=== PATIENT | male | born 1945 | race Caucasian/White ===

== ENCOUNTER 2018-04-07 22:21 | Observation (INO) | payer MEDICARE, BC ==
[2018-04-07] MEDS ORDERED: ASPIRIN 81 MG PO STA (22:41)
--- NOTE | 2018-04-07 22:45 | ED ---
Chest Pain HPI - General Chief Complaint: Chest Pain Stated Complaint: Chest Pain Time Seen by Provider: 04/07/18 22:29 Source: patient, family Mode of arrival: ambulatory Limitations: no limitations - History of Present Illness Initial Comments: Patient is a 72-year-old male presenting for chest pain. Patient states that around 6 PM, he started having a constant dull sensation on the left side of his chest. The discomfort does not radiate and he states that multiple different things made the pain worse such as eating and drinking as well as moving. He denies any nausea/vomiting/diarrhea and decided to come in after he was having persistent symptoms and he checked his blood pressure and it was 200/ 125. He also admits to past medical history hypertension and hyperlipidemia but does not smoke. He also denies any fevers or chills as well as coughing. - Related Data Home Medications Medication Instructions Recorded Confirmed Multivit-Mins/Iron/Folic/Lycop 1 tab PO DAILY 12/08/15 12/08/15 [Centrum Men's Tablet] Quinapril HCl 10 mg PO DAILY 12/08/15 12/08/15 Simvastatin [Zocor] 20 mg PO HS 12/08/15 12/08/15 Allergies Allergy/AdvReac Type Severity Reaction Status Date / Time No Known Allergies Allergy Verified 04/07/18 22:26 Review of Systems ROS Statement: Those systems with pertinent positive or pertinent negative responses have been documented in the HPI. Constitutional: Negative for chills, fatigue and fever. HENT: Negative for congestion. Respiratory: Negative for chest tightness, shortness of breath and wheezing. Negative for cough Cardiovascular: Positive for chest pain and negative for palpitations. Gastrointestinal: Negative for abdominal pain. Negative for abdominal distention , diarrhea, nausea and vomiting. Genitourinary: Negative for dysuria. Musculoskeletal: Negative for back pain, neck pain and neck stiffness. Skin: Negative for color change. Neurological: Negative for dizziness, speech difficulty, weakness and light- headedness. Psychiatric/Behavioral: Negative for agitation and confusion. Negative for anxiety ROS Other: All systems not noted in ROS Statement are negative. EKG Findings - EKG Comments: EKG Findings:: EKG shows normal sinus rhythm with a rate of 64 bpm, UT interval 186, QRS 92, QTC 431. There is no significant ST depressions or elevations. Past Medical History Past Medical History: Hypertension History of Any Multi-Drug Resistant Organisms: None Reported Past Surgical History: Orthopedic Surgery Past Psychological History: No Psychological Hx Reported Smoking Status: Never smoker Past Alcohol Use History: Occasional Past Drug Use History: None Reported General Exam - General Exam Comments Initial Comments: Constitutional: Pt is oriented to person, place, and time. Pt appears well- developed and well-nourished. No distress. HENT: Head: Normocephalic and atraumatic. Eyes: EOM are normal. Neck: Normal range of motion. Neck supple. Cardiovascular: Normal rate, regular rhythm, S1 normal, S2 normal and normal heart sounds. Exam reveals no gallop and no friction rub. No murmur heard. Pulmonary/Chest: Effort normal and breath sounds normal. No tachypnea and no bradypnea. No respiratory distress. No wheezes or rales noted. Abdominal: Soft. Bowel sounds are normal. Pt exhibits no shifting dullness, no distension, no pulsatile liver, no fluid wave, no abdominal bruit and no ascites. There is no tenderness. There is no rigidity, no rebound, no guarding, no tenderness at McBurney's point and negative Glover's sign. Musculoskeletal: Normal range of motion. Neurological: Pt is alert and oriented to person, place, and time. No cranial nerve deficit. Skin: Skin is warm and dry. No rash noted. Pt is not diaphoretic. No erythema. No pallor. Psychiatric: Pt has a normal mood and affect. Pt behavior is normal. Thought content normal. Limitations: no limitations Course Vital Signs 04/07/18 04/07/18 04/07/18 22:24 22:55 23:05 Temperature 98.5 F Pulse Rate 66 68 62 Respiratory 20 16 16 Rate Blood Pressure 221/116 177/102 170/96 O2 Sat by Pulse 99 98 Oximetry 04/07/18 23:50 Temperature Pulse Rate 64 Respiratory 16 Rate Blood Pressure 160/99 O2 Sat by Pulse 98 Oximetry Chest Pain MDM - MDM EKG had no significant ST depressions or elevations and troponin was negative. However, the patient has significant heart risk including hypertension and hyperlipidemia with a heart score 4and because of this, is that the patient should be admitted to hospital for further evaluation. At the time of disposition, the patient stated that the chest discomfort had improved. Explained all labs and diagnostic test results and that we will admit patient to hospital. Pt is agreeable to plan and case has been discussed with Dr. Beckford and they agree to accept the pt. Disposition Clinical Impression: Chest pain Disposition: ADMITTED IP TO THIS HOSP Condition: Good Referrals: Winston Martinez MD [Primary Care Provider] - 1-2 days Decision to Admit Reason: Admit from EC Decision Date: 04/08/18 Decision Time: 00:33
[2018-04-07 23:24] LABS: Basophils # (A) 0.1 k/uL (0-0.2); Basophils % (A) 1 %; Eosinophils # (A) 0.3 k/uL (0-0.7); Eosinophils % (A) 4 %; HCT 40.5 % (39.0-53.0); HGB 13.5 gm/dL (13.0-17.5); Lymphocytes # (A) 2.4 k/uL (1.0-4.8); Lymphocytes % (A) 29 %; MCHC 33.2 g/dL (31.0-37.0); MCV 93.5 fL (80.0-100.0); Mean Platelet Volume 7.2; Monocytes # (A) 0.6 k/uL (0-1.0); Monocytes % (A) 7 %; Neutrophils # (A) 4.7 k/uL (1.3-7.7); Neutrophils % (A) 58 %; Platelet Count 281 k/uL (150-450); RBC 4.34 m/uL (4.30-5.90); RDW 12.4 % (11.5-15.5); WBC 8.2 k/uL (3.8-10.6)
[2018-04-07 23:32] LABS: INR 1.1 (<1.2); Prothrombin Time 10.6 sec (9.0-12.0)
[2018-04-07 23:34] LABS: ALT 30 U/L (21-72); AST 23 U/L (17-59); Alkaline Phosphatase 46 U/L (38-126); Anion Gap 8 mmol/L; Blood Urea Nitrogen 16 mg/dL (9-20); Calcium 9.7 mg/dL (8.4-10.2); Carbon Dioxide 26 mmol/L (22-30); Chloride 106 mmol/L (98-107); Glucose 105 mg/dL (74-99); Magnesium 2.1 mg/dL (1.6-2.3); Potassium 4.1 mmol/L (3.5-5.1); Sodium 140 mmol/L (137-145); Total Bilirubin 0.4 mg/dL (0.2-1.3)
[2018-04-07 23:44] LABS: Creatine Kinase 75 U/L (55-170)
[2018-04-07 23:57] LABS: Troponin I <0.012 ng/mL (0.000-0.034)
--- NOTE | 2018-04-08 00:17 | XR ---
EXAMINATION TYPE: XR chest 2V DATE OF EXAM: 04/07/2018 COMPARISON: 12/22/2007 HISTORY: Chest pain TECHNIQUE: Frontal and lateral views of the chest are obtained. FINDINGS: There is no heart failure nor confluent pneumonic infiltrate. Costophrenic angles are rubi r. There are chest leads. Bony thorax is intact. IMPRESSION: No active cardiopulmonary disease. Normal heart. No change.
[2018-04-08] MEDS ORDERED: NITROGLYCERIN SL TABS 0.4 MG TAB SUBLINGUAL PRN (00:34)
[2018-04-08] MEDS ORDERED: hydrALAZINE HCL 10 MG TAB PO PRN (01:05)
[2018-04-08 01:27] VITALS: BMI 27.1
[2018-04-08] MEDS ORDERED: amLODIPine 5 MG TAB PO STA ×2 (06:27→07:51)
[2018-04-08 06:33] LABS: Creatine Kinase 68 U/L (55-170)
[2018-04-08 06:46] LABS: Creatine Kinase MB 0.9 ng/mL (0.0-2.4); Troponin I <0.012 ng/mL (0.000-0.034)
[2018-04-08] MEDS ORDERED: CAFFEINE CITRATE 60 MG/3 ML VIAL IV PRN (07:52)
[2018-04-08] MEDS ORDERED: REGADENOSON 0.4 MG/5 ML SYRINGE IV ONE (07:52)
[2018-04-08 08:03] VITALS: TEMP 98.2
[2018-04-08] MEDS ORDERED: LISINOPRIL 20 MG TAB PO SCH (09:00)
[2018-04-08] MEDS ORDERED: LISINOPRIL 10 MG TAB PO SCH (09:00)
[2018-04-08] MEDS ORDERED: HYDROCHLOROTHIAZIDE 25 MG TAB PO SCH (09:00)
--- NOTE | 2018-04-08 11:01 | P.CRDCN ---
History of Present Illness History of present illness: This is a pleasant 72-year-old male past medical history significant for hypertension and dyslipidemia. He denies history of coronary artery disease or diabetes mellitus. He does not follow with a frame nailer for any reason. We have been asked to see him in consultation for chest pain. He states last evening after a long day of running around and activities with his they came home and he was sitting down. He started feeling a non-specific discomfort in the mid-sternal region with radiation to the left precordial region. The pain is described as a tight dull sensation. He denies radiation to the arm, back, neck or jaw. He denies associated shortness of breath, dizziness, palpitations, nausea, vomiting or diaphoresis. He checked his blood pressure at home and it was 230/120. For this reason he came to the hospital for evaluation. He has been feeling this discomfort in his chest intermittently over the last few months. The pain typically comes at rest and is not exacerbated by exertion. He doesn't regularly check his blood pressure at home. He is currently chest pain free. His at the bedside states she has noticed he has been increasingly fatigued recently as well. EKG reveals sinus mechanism with no acute ST or T-wave changes. Chest xray negative for an acute cardiopulmonary process. Laboratory data reviewed, WBC 8.2, hgb 13.5, plt 281, sodium 140, potassium 4.1 , creatinine 0.89, magnesium 2.1, cardiac enzymes negative x2, NT proBNP 170. Current cardiac medications simvastatin 20 mg daily, quilapril 10 mg daily and toprol 25 mg daily. At the time of my exam: CONSTITUTIONAL: Denies fever. Denies chills. EYES: Denies blurred vision. Denies vision changes. Denies eye pain. EARS, NOSE, MOUTH & THROAT: Denies headache. Denies sore throat. Denies ear pain. CARDIOVASCULAR: Denies chest pain. Denies shortness of breath. Denies orthopnea. Denies PND. Denies palpitations. RESPIRATORY: Denies cough. GASTROINTESTINAL: Denies abdominal pain. Denies diarrhea. Denies constipation. Denies nausea. Denies vomiting. MUSCULOSKELETAL: Denies myalgias. INTEGUMENTARY: Denies pruitis. Denies rash. NEUROLOGIC: Denies numbness. Denies tingling. Denies weakness. PSYCHIATRIC: Denies anxiety. Denies depression. ENDOCRINE: Denies fatigue. Denies weight change. Denies polydipsia. Denies polyurina. GENITOURINARY: Denies burning, hematuria or urgency with micturation. HEMATOLOGIC: Denies history of anemia. Denies bleeding. Blood pressure 158/92 heart rate 79 afebrile maintaining oxygen saturation on room air GENERAL: This is a 72-year-old male in no apparent distress at the time of my examination. HEENT: Head is atraumatic, normocephalic. Pupils are equal, round. Sclerae anicteric. Conjunctivae are clear. Mucous membranes of the mouth are moist. Neck is supple. There is no jugular venous distention. No carotid bruit is heard. LUNGS: Clear to auscultation no wheezes, rales or rhonchi. No chest wall tenderness is noted on palpation or with deep breathing. HEART: Regular rate and rhythm without murmurs, rubs or gallops. S1 and S2 heard. ABDOMEN: Soft, nontender. Bowel sounds are heard. No organomegaly noted. EXTREMITIES: No evidence of peripheral edema and no calf tenderness noted. VASCULAR: Radial and dorsalis pedis pulses palpated, no evidence of clubbing. NEUROLOGIC: Patient is awake, alert and oriented x3. ASSESSMENT Chest pain, atypical. An acute coronary event has been ruled out with no EKG evidence of ischemia and negative cardiac enzymes. Hypertension, uncontrolled. Dyslipidemia PLAN An acute coronary event has been ruled out with no EKG evidence of ischemia and negative cardiac enzymes. Lisinopril has been increased to 20 mg daily per primary care team as well as added on norvasc 5 mg. We will also add hydrochlorothiazide 25 mg daily. If blood pressure is reasonable after giving these medications we will proceed with Lexiscan stress test. Check lipid profile. Thank you kindly for this consultation. Nurse Practitioner note has been reviewed, I agree with a documented findings and plan of care. Patient was seen and examined. Past Medical History Past Medical History: Hyperlipidemia, Hypertension History of Any Multi-Drug Resistant Organisms: None Reported Past Surgical History: Orthopedic Surgery Additional Past Surgical History / Comment(s): left wrist ORIF Past Anesthesia/Blood Transfusion Reactions: No Reported Reaction Past Psychological History: No Psychological Hx Reported Smoking Status: Never smoker Past Alcohol Use History: Occasional Past Drug Use History: None Reported - Past Family History Brother(s) Additional Family Medical History / Comment(s): aortic dissection Medications and Allergies Home Medications Medication Instructions Recorded Confirmed Type Multivit-Mins/Iron/Folic/Lycop 1 tab PO DAILY 12/08/15 04/08/18 History [Centrum Men's Tablet] Quinapril HCl 10 mg PO DAILY 12/08/15 04/08/18 History Simvastatin [Zocor] 20 mg PO HS 12/08/15 04/08/18 History Finasteride [Proscar] 5 mg PO DAILY 04/08/18 04/08/18 History Metoprolol Succinate [Toprol XL] 25 mg PO DAILY 04/08/18 04/08/18 History Allergies Allergy/AdvReac Type Severity Reaction Status Date / Time No Known Allergies Allergy Verified 04/08/18 08:42 Physical Exam Vitals: Vital Signs Temp Pulse Pulse Resp BP BP Pulse Ox 04/08/18 09:14 158/92 04/08/18 08:00 79 16 04/08/18 07:27 98.2 F 79 16 194/105 98 04/08/18 06:37 64 16 181/107 96 04/08/18 03:25 16 04/08/18 03:24 98.4 F 65 16 156/95 98 04/08/18 01:46 51 L 16 04/08/18 01:10 98.7 F 51 L 16 174/98 96 04/08/18 01:00 97.8 F 56 L 16 175/98 98 04/07/18 23:50 64 16 160/99 98 04/07/18 23:05 62 16 170/96 04/07/18 22:55 68 16 177/102 98 04/07/18 22:24 98.5 F 66 20 221/116 99 Intake and Output 04/07/18 04/08/18 04/08/18 22:59 06:59 14:59 Other: Voiding Method Toilet Toilet # Voids 2 Weight 90.718 kg 90.7 kg Results 04/07/18 23:02 04/07/18 23:02 Cardiac Enzymes 04/07/18 04/07/18 04/08/18 Range/Units 23:02 23:02 05:28 AST 23 (17-59) U/L CK-MB (CK-2) 1.0 0.9 (0.0-2.4) ng/mL Troponin I <0.012 <0.012 (0.000-0.034) ng/mL Coagulation 04/07/18 Range/Units 23:02 PT 10.6 (9.0-12.0) sec APTT 25.0 (22.0-30.0) sec CBC 04/07/18 Range/Units 23:02 WBC 8.2 (3.8-10.6) k/uL RBC 4.34 (4.30-5.90) m/uL Hgb 13.5 (13.0-17.5) gm/dL Hct 40.5 (39.0-53.0) % Plt Count 281 (150-450) k/uL Comprehensive Metabolic Panel 04/07/18 Range/Units 23:02 Sodium 140 (137-145) mmol/L Potassium 4.1 (3.5-5.1) mmol/L Chloride 106 (98-107) mmol/L Carbon Dioxide 26 (22-30) mmol/L BUN 16 (9-20) mg/dL Creatinine 0.89 (0.66-1.25) mg/dL Glucose 105 H (74-99) mg/dL Calcium 9.7 (8.4-10.2) mg/dL AST 23 (17-59) U/L ALT 30 (21-72) U/L Alkaline Phosphatase 46 (38-126) U/L Total Protein 7.0 (6.3-8.2) g/dL Albumin 4.0 (3.5-5.0) g/dL Current Medications Generic Name Dose Route Start Last Admin Trade Name Freq PRN Reason Stop Dose Admin Aspirin 325 mg 04/09/18 09:00 Aspirin PO DAILY [facility] Atorvastatin Calcium 10 mg 04/08/18 21:00 Lipitor PO HS ROSARIO Caffeine Citrate 60 mg 04/08/18 07:52 Cafcit Inj IV ONCE PRN Patient Response Hydrochlorothiazide 25 mg 04/08/18 09:00 04/08/18 09:13 Hydrodiuril PO 25 mg DAILY ROSARIO Administration Lisinopril 20 mg 04/08/18 09:00 04/08/18 08:13 Zestril PO 20 mg DAILY ROSARIO Administration Nitroglycerin 0.4 mg 04/08/18 00:34 Nitrostat SUBLINGUAL Q5M PRN Chest Pain Intake and Output 04/07/18 04/08/18 04/08/18 22:59 06:59 14:59 Other: Voiding Method Toilet Toilet # Voids 2 Weight 90.718 kg 90.7 kg 04/07/18 23:02 04/07/18 23:02
[2018-04-08 11:52] LABS: Cholesterol 147 mg/dL (<200); HDL Cholesterol 49 mg/dL (40-60); LDL Cholesterol,Calculated 86 mg/dL (0-99); Triglycerides 62 mg/dL (<150)
--- NOTE | 2018-04-08 13:04 | ECHOF ---
Referral Reason:chest pain MEASUREMENTS -------- HEIGHT: 182.9 cm WEIGHT: 90.3 kg BP: RVIDd: 2.5 cm (< 3.3) IVSd: 1.2 cm (0.6 - 1.1) LVIDd: 3.9 cm (3.9 - 5.3) LVPWd: 1.2 cm (0.6 - 1.1) IVSs: 1.5 cm LVIDs: 3.0 cm LVPWs: 1.4 cm LAESV Index (A-L): 27.38 ml/m Ao Diam: 3.7 cm (2.0 - 3.7) AV Cusp: 2.0 cm (1.5 - 2.6) LA Diam: 3.2 cm (2.7 - 3.8) MV EXCURSION: 13.189 mm (> 18.000) MV EF SLOPE: 29 mm/s (70 - 150) EPSS: 0.8 cm MV E Ney: 0.33 m/s MV DecT: 218 ms MV A Ney: 0.61 m/s MV E/A Ratio: 0.55 RAP: 5.00 mmHg RVSP: 20.32 mmHg FINDINGS -------- Sinus rhythm. This was a technically adequate study. The left ventricular size is normal. There is mild concentric left ventricular hypertrophy. Overa ll left ventricular systolic function is normal with, an EF between 55 - 60 %. The right ventricle is normal in size. The left atrial size is normal. The right atrial size is normal. The aortic valve is trileaflet, and appears structurally normal. No aortic stenosis or regurgitation. Mild mitral annular calcification present. Mild mitral regurgitation is present. Mild tricuspid regurgitation present. There is no evidence of pulmonary hypertension. The right v entricular systolic pressure, as measured by Doppler, is 20.32mmHg. There is no pulmonic regurgitation present. The aortic root size is normal. There is no pericardial effusion. CONCLUSIONS -------- 1. Sinus rhythm. 2. The left ventricular size is normal. 3. There is mild concentric left ventricular hypertrophy. 4. Overall left ventricular systolic function is normal with, an EF between 55 - 60 %. 5. The left atrial size is normal. 6. The right atrial size is normal. 7. The aortic valve is trileaflet, and appears structurally normal. No aortic stenosis or regurgitati on. 8. Mild mitral annular calcification present. 9. Mild mitral regurgitation is present. 10. Mild tricuspid regurgitation present. 11. There is no evidence of pulmonary hypertension. 12. There is no pulmonic regurgitation present. 13. The aortic root size is normal. 14. There is no pericardial effusion. RN CLINICAL DOCUMENTATION: Becki Starks RDCS
--- NOTE | 2018-04-08 13:19 | NM ---
EXAMINATION TYPE: NM stress lexiscan cardiolite DATE OF EXAM: 04/08/2018 COMPARISON: NONE HISTORY: Chest pain TECHNIQUE: After the intravenous administration of 10.3 mCi Tc 99m Sestamibi - Cardiolite resting SP ECT images acquired 45 minutes post injection. The patient received 0.4mg Lexiscan, 25.1 mCi Tc 99m Sestamibi - Stress images obtained [address] injection FINDINGS: Review of stress and rest SPECT images demonstrates no reversible perfusion abnormality. Single segme nt rest only perfusion defect is artifactual. Gated analysis shows normal wall motion with an estima chanel left ventricular ejection fraction of 60 %. Transient ischemic dilatation coefficient measures 1. 02, within normal limits. IMPRESSION: No scintigraphic evidence for reversible ischemia.
[2018-04-08 13:31] VITALS: BP 169/105; PULSE 74; RESP 18
--- NOTE | 2018-04-08 14:13 | EST ---
EXERCISE STRESS AGE: 72 SEX: M HT: 6'0" WT: 199 PROTOCOL: Lexiscan Cardiolite Stress Test HEART RATE REST: 64 BLOOD PRESSURE REST: 138/90 MAXIMUM HEART RATE ACHIEVED: 92 MAXIMUM BLOOD PRESSURE: 159/90 85% MPHR: 125 100% MPHR: 147 INDICATIONS: Chest pain. CLINICAL INFORMATION: Baseline rhythm is sinus mechanism. rate is 64, normal axis, intervals. Normal echocardiogram. Baseline blood pressure 138/90 mmHg. Patient received injection of Lexiscan. Electrocardiographic monitoring revealed rare PVCs. There was no evidence of diagnostic ischemic ST-T deviation. Cardiolite was injected per protocol. CONCLUSION: 1. Nondiagnostic electrocardiograph stress testing with occasional premature ventricular contractions. 2. Nuclear images will be reported separately. MMODL / IJN: [id number] /
[2018-04-08] MEDS ORDERED: ATORVASTATIN 10 MG TAB PO SCH (21:00)
--- NOTE | 2018-04-09 00:17 | HP ---
HISTORY AND PHYSICAL ATTENDING PHYSICIAN: Dr. Roshan Martinez. CHIEF COMPLAINT: Chest pain. HISTORY OF PRESENT ILLNESS: This 72-year-old gentleman presents to the emergency room with having a chest pain across the left precordium for a few hours. The patient said he has had this type of pain off and on for the past couple months. Today at the time before presenting to the emergency room, he was having some discomfort. The discomfort seemed to be more when he was seated down or lying down. He felt better if he got up and walked around. There was no other associated symptoms of nausea, vomiting, heartburn. No abdominal pain. He had no symptoms of shortness of breath, diaphoresis. This pain, discomfort is only in the left precordial area, not radiating. Has no other associated symptoms of fevers or chills. The patient in view of this took his blood pressure and noted that it was extremely high in the 200s. In view of this, he presents to the emergency room. He was told blood pressure was 221/116 in the ER. No acute EKG changes. Negative cardiac enzymes. In view of above findings, the patient is admitted to the hospital for observation. PAST MEDICAL HISTORY: Primarily significant for hypertension. Past medical history of hypertension, osteoarthritis, hyperlipidemia, BPH. PAST SURGICAL HISTORY: Significant for a TURP. PERSONAL HISTORY: Nonsmoker. Alcohol. A glass of wine per day about once a week. FAMILY MEDICAL HISTORY: Father at the age of 80, hypertensive heart disease. Mother at the age of 81, primary pulmonary fibrosis as a brother 68 years of age who has a history of thoracoabdominal dissection and recent aneurysmal dilatation correction. He has a son, 39 in good health, a daughter 43 in good health. MEDICATIONS: At home have included quinapril 10 mg daily, metoprolol succinate 25 mg daily, simvastatin 20 mg daily, finasteride 5 mg daily. REVIEW OF SYSTEMS: NEURO: Denies any headaches, dizziness. No double vision or blurred vision. No symptoms of TIA, syncope, seizures. PSYCH: No anxiety/depression. CARDIAC: Present atypical chest pain. No associated shortness of breath. No palpitations. GI no nausea, vomiting, abdominal pain, diarrhea. no symptoms of dysuria, hematuria, urgency. Does have some frequency and nocturia x1. Extremities: Denies pain/edema. CONSTITUTIONAL: No fever, chills. HEMATOLOGICAL: No anemia or bleeding disorder. ENDOCRINE: No history of diabetes mellitus or hypothyroidism. SKIN: No rashes. ENT adequate hearing, smell test. Eyes adequate vision. PHYSICAL EXAMINATION: Pleasant gentleman at present in no distress. Vital signs reveals temperature 98.2, pulse 79, respirations 16, blood pressure 194/105, pulse ox 98 percent. HEENT: Normocephalic. NECK: Supple. No JVD. No carotid bruits. CHEST: Clear to auscultation and percussion. CARDIAC: Normal S1, S2 with no gallops, murmurs, rubs. ABDOMEN: Soft. No palpable masses. Bowel sounds normal. No organomegaly. No abdominal bruits. EXTREMITIES: Reveal no edema. Good pulses both upper lower extremities and symmetrical pulses both radial, femoral, and pedal. Neurologically awake, alert, oriented x3 with intact cranial nerves, symmetrical both upper and lower extremities many movements. LAB ASSESSMENT: Normal CBC, PT, PTT, INR, electrolytes, BUN, creatinine, and blood sugar was 105. Normal hepatic function. Normal BMP. Albumin normal. Troponins negative. Repeat troponin negative as well. Cholesterol 147, LDL 86. EKG no acute changes. Normal sinus rhythm, rate 64, and normal EKG. ASSESSMENT: 1. Atypical chest pain. 2. Accelerated hypertension. 3. History of benign prostatic hypertrophy. 4. Hyperlipidemia on medical therapy. PLAN: The patient is admitted to the hospital, will be given extra doses of his quinapril does will be doubled. The patient placed on Norvasc 10 mg daily. Continue with metoprolol. The patient will undergo stress test and echocardiogram. The patient also needs to be seen by Cardiology. If the cardiac stress test comes back negative, the patient will be placed on Prilosec. We will subsequently as an outpatient, re-evaluate further. MMODL / IJN: [id number] /
[2018-04-09] MEDS ORDERED: ASPIRIN 325 MG TAB PO SCH (09:00)
[2018-04-09] MEDS ORDERED: ASPIRIN 81 MG PO SCH (09:00)
== END 2018-04-08 16:09 | disposition home or self-care (01) ==
LOC: EC 22:21 → 1SOBS 04-08 00:34
PROVIDERS: ADMIT Internal Medicine; ATTEND Internal Medicine
DX: R07.89 Other chest pain (principal); I10 Essential (primary) hypertension; E78.5 Hyperlipidemia, unspecified; R53.83 Other fatigue; N40.0 Benign prostatic hyperplasia without lower urinary tract symptoms; M19.90 Unspecified osteoarthritis, unspecified site; Z79.899 Other long term (current) drug therapy; Z98.890 Other specified postprocedural states; Z82.49 Family history of ischemic heart disease and other diseases of the circulatory system
CPT/HCPCS: 99285; 36415; 93005; 93017; 93306; 83880; 80061; 80053; 82550 ×2; 82553 ×2; 83735; 84484 ×2; 85025; 85610; 85730; 71046; 78452; G0378; A9500; J2785

== ENCOUNTER → 2018-10-07 | Outpatient (CLI) | payer MEDICARE, BC ==
--- NOTE | 2018-10-07 16:04 | US ---
EXAMINATION TYPE: US carotid duplex BILAT DATE OF EXAM: 10/07/2018 COMPARISON: NONE CLINICAL HISTORY: I10 HTN, G45.1 Carotid artery syndrome.... EXAM MEASUREMENTS: RIGHT: Peak Systolic Velocity (PSV) cm/sec ----- Right CCA: 62.2 ----- Right ICA: 108. ----- Right ECA: 59.1 ICA/CCA ratio: 1.74 RIGHT: End Diastole cm/sec ----- Right CCA: 22.2 ----- Right ICA: 35.5 ----- Right ECA: 12.1 LEFT: Peak Systolic Velocity (PSV) cm/sec ----- Left CCA: 71.0 ----- Left ICA: 65.9 ----- Left ECA: 71.3 ICA/CCA ratio: 0.91 LEFT: End Diastole cm/sec ----- Left CCA: 25.3 ----- Left ICA: 41.2 ----- Left ECA: 14.1 VERTEBRALS (direction of flow): Right Vertebral: Antegrade Left Vertebral: Antegrade Rhythm: Normal Mild atherosclerotic changes with no significant increases in velocity. IMPRESSION: Mild degree of grayscale atheromatous plaquing with no sonographically evident hemodynam ically significant stenosis within either visualized carotid arterial system. Criteria for Assigning % of Stenosis / Diameter reduction (Estimation based on the indirect measurements of the internal carotid artery velocities (ICA PSV). 1. Normal (no stenosis)=ICA PSV < 125 cm/s: ratio < 2.0: ICA EDV<40 cm/s. 2. Less than 50% stenosis=ICA PSV < 125 cm/s: ratio < 2.0: ICA EDV<40 cm/s. 3. 50 to 69% stenosis=ICA PSV of 125 to 230 cm/s: ration 2.0 ? 4.0: ICA EDV 40-100 cm/s. 4. Greater than 70% stenosis to near occlusion= ICA PSV > 230 cm/s: ratio > 4.0: ICA EDV > 100 cm/s. 5. Near occlusion= ICA PSV velocities may be low or undetectable: variable ratio and ICA EDV. 6. Total occlusion=unable to detect flow.
== END | disposition home or self-care (01) ==
LOC: RADUSWWP 15:25
PROVIDERS: ATTEND Internal Medicine
DX: G45.1 Carotid artery syndrome (hemispheric) (principal); I10 Essential (primary) hypertension; E78.5 Hyperlipidemia, unspecified
CPT/HCPCS: 93880

== ENCOUNTER 2022-11-20 04:49 | Observation (INO) | payer MEDICARE, BC ==
[2022-11-20] MEDS ORDERED: ASPIRIN 81 MG PO STA (05:08)
--- NOTE | 2022-11-20 05:16 | ED ---
Chest Pain HPI - General Chief Complaint: Chest Pain Stated Complaint: Chest pain Time Seen by Provider: 11/20/22 04:55 Source: patient Mode of arrival: ambulatory Limitations: no limitations - History of Present Illness Initial Comments: 77-year-old male with past medical history of hypertension, hyperlipidemia presents to the emergency room reporting chest pain. Describes it as a substernal chest pain which is associated with left arm numbness. States that he has exertional shortness of breath with the pain. No fevers chills or cough. Denies previous coronary disease. Had a stress test last year which was normal. He does have a history of hypertension. No lower extremity swelling. No history of DVT or PE. Pain has been present for the past several days however he felt like it was progressing. No other alleviating, precipitating or modifying factors - Related Data Home Medications Medication Instructions Recorded Confirmed Finasteride [Proscar] 5 mg PO DAILY 04/08/18 11/20/22 Metoprolol Succinate [Toprol XL] 25 mg PO DAILY 04/08/18 11/20/22 Hydrochlorothiazide 12.5mg Tablet 12.5 mg PO DAILY 11/20/22 11/20/22 Omeprazole [PriLOSEC] 20 mg PO HS 11/20/22 11/20/22 Rosuvastatin Calcium 5 mg PO HS 11/20/22 11/20/22 amLODIPine [Norvasc] 5 mg PO DAILY 11/20/22 11/20/22 lisinopriL [Zestril] 20 mg PO DAILY 11/20/22 11/20/22 Allergies Allergy/AdvReac Type Severity Reaction Status Date / Time Tetanus Vaccines and Toxoid Allergy Unknown Verified 11/20/22 06:53 Review of Systems ROS Statement: Those systems with pertinent positive or pertinent negative responses have been documented in the HPI. ROS Other: All systems not noted in ROS Statement are negative. Past Medical History Past Medical History: Hyperlipidemia, Hypertension History of Any Multi-Drug Resistant Organisms: None Reported Past Surgical History: Orthopedic Surgery Additional Past Surgical History / Comment(s): left wrist ORIF Past Anesthesia/Blood Transfusion Reactions: No Reported Reaction Past Psychological History: No Psychological Hx Reported Smoking Status: Never smoker Past Alcohol Use History: Occasional Past Drug Use History: None Reported - Past Family History Brother(s) Additional Family Medical History / Comment(s): aortic dissection General Exam Limitations: no limitations Course Vital Signs 11/20/22 11/20/22 11/20/22 04:51 04:53 06:17 Temperature 97.5 F L Pulse Rate 61 56 L 56 L Respiratory 18 16 16 Rate Blood Pressure 167/92 148/88 134/84 O2 Sat by Pulse 98 99 100 Oximetry 11/20/22 07:33 Temperature Pulse Rate 52 L Respiratory 16 Rate Blood Pressure 152/85 O2 Sat by Pulse 98 Oximetry Chest Pain MDM - MDM Was pt. sent in by a medical professional or institution (, [facility], [facility] [facility], urgent care, hospital, or custodial...) When possible be specific @ -[No] Did you speak to anyone other than the patient for history (EMS, parent, family, police, friend...)? What history was obtained from this source @ -[No] Did you review nursing and triage notes (agree or disagree)? Why? @ -[I reviewed and agree with nursing and triage notes] Were old charts reviewed (outside hosp., previous admission, EMS record, old EKG, old radiological studies, urgent care reports/EKG's, custodial records)? Report findings @ -[No old charts were reviewed] Differential Diagnosis (chest pain, altered mental status, abdominal pain women, abdominal pain men, vaginal bleeding, weakness, fever, dyspnea, syncope, headache, dizziness, GI bleed, back pain, seizure, CVA, palpatations, mental health, musculoskeletal)? @ -[not applicable] EKG interpreted by me (3pts min.). @ -Yes and demonstrates normal sinus rhythm with rate of 60. CA interval 199. QRS 92. QTC 422. No acute ST segment elevations or depressions X-rays interpreted by me (1pt min.). @ -[None done] CT interpreted by me (1pt min.). @ -[None done] U/S interpreted by me (1pt. min.). @ -[None done] What testing was considered but not performed or refused? (CT, X-rays, U/S, labs)? Why? @ -[None] What meds were considered but not given or refused? Why? @ -[None] Did you discuss the management of the patient with other professionals (professionals i.e. , [facility], [employer] [facility], lab, RT, psych nurse, public health social worker, cloud consultant, teacher, chief digital officer, business case analyst)? Give summary @ -[No] Was smoking cessation discussed for >3mins.? @ -[No] Was critical care preformed (if so, how long)? @ -[No] Were there social determinants of health that impacted care today? How? (Homelessness, low income, unemployed, alcoholism, drug addiction, transportation, low edu. Level, literacy, decrease access to med. care, alf, rehab)? @ -[No] Was there de-escalation of care discussed even if they declined (Discuss DNR or withdrawal of care, Hospice)? DNR status @ -[No] What co-morbidities impacted this encounter? (DM, HTN, Smoking, COPD, CAD, Cancer, CVA, ARF, Chemo, Hep., AIDS, mental health diagnosis, sleep apnea, morbid obesity)? @ -[None] Was patient admitted / discharged? Hospital course, mention meds given and route, prescriptions, significant lab abnormalities, going to OR and other pertinent info. @ - Upon arrival patient was placed into room 9. Thorough history and physical exam was performed. He is placed on continuous pulse ox and cardiac monitoring. 12-lead EKG was obtained. Laboratory studies are conducted and reviewed. Troponin is negative. Chest x-ray demonstrates no acute process. Discuss results with the patient. Recommended admission in order to trend his troponin s. Patient was agreeable to this. Spoke with Dr. garner who agreed to admit the patient Undiagnosed new problem with uncertain prognosis? @ -[No] Drug Therapy requiring intensive monitoring for toxicity (Heparin, Nitro, Insulin, Cardizem)? @ -[No] Were any procedures done? @ -[No] Diagnosis/symptom? @ -[default] Acute, or Chronic, or Acute on Chronic? @ -[default] Uncomplicated (without systemic symptoms) or Complicated (systemic symptoms)? @ -[default] Side effects of treatment? @ -[No] Exacerbation, Progression, or Severe Exacerbation? @ -[No] Poses a threat to life or bodily function? How? (Chest pain, USA, MD, pneumonia, PE, COPD, DKA, ARF, appy, cholecystitis, CVA, Diverticulitis, Homicidal, Suicidal, threat to staff... and all critical care pts) @ -[No] Disposition Clinical Impression: Chest pain Disposition: ADMITTED IP TO THIS HOSP Condition: Stable Is patient prescribed a controlled substance at d/c from ED?: No Time of Disposition: 06:22 Decision to Admit Reason: Admit from EC Decision Date: 11/20/22 Decision Time: 06:22
[2022-11-20 05:34] LABS: Basophils % (A) 0 %; Eosinophils # (A) 0.2 k/uL (0-0.7); Eosinophils % (A) 2 %; HCT 41.1 % (39.0-53.0); HGB 14.3 gm/dL (13.0-17.5); Lymphocytes # (A) 2.2 k/uL (1.0-4.8); Lymphocytes % (A) 25 %; MCH 33.5 pg (25.0-35.0); MCHC 34.8 g/dL (31.0-37.0); MCV 96.3 fL (80.0-100.0); Mean Platelet Volume 7.4; Monocytes # (A) 0.6 k/uL (0-1.0); Monocytes % (A) 6 %; Neutrophils # (A) 5.8 k/uL (1.3-7.7); Neutrophils % (A) 65 %; Platelet Count 255 k/uL (150-450); RBC 4.27 m/uL (4.30-5.90); RDW 12.1 % (11.5-15.5); WBC 8.9 k/uL (3.8-10.6)
[2022-11-20 05:39] LABS: Partial Thromboplastin Time 23.6 sec (22.0-30.0); Prothrombin Time 10.9 sec (9.0-12.0)
[2022-11-20 05:40] LABS: ALT 20 U/L (4-49); AST 24 U/L (17-59); African American GFR (CKD) 78 (>60 ml/min/1.73 sqM); Albumin 4.5 g/dL (3.5-5.0); Alkaline Phosphatase 58 U/L (38-126); Anion Gap 11 mmol/L; Blood Urea Nitrogen 19 mg/dL (9-20); Calcium 9.6 mg/dL (8.4-10.2); Carbon Dioxide 24 mmol/L (22-30); Chloride 105 mmol/L (98-107); Glucose 112 mg/dL (74-99); Lipase 143 U/L (23-300); Magnesium 2.1 mg/dL (1.6-2.3); Non-African American GFR(CKD) 67 (>60 ml/min/1.73 sqM); Potassium 3.6 mmol/L (3.5-5.1); Sodium 140 mmol/L (137-145); Total Protein 7.6 g/dL (6.3-8.2)
[2022-11-20] MEDS ORDERED: NALOXONE 0.4 MG/ML 1 ML VIAL IV PRN (06:22)
[2022-11-20] MEDS ORDERED: PANTOPRAZOLE 40 MG/10 ML VIAL IVP STA (06:25)
[2022-11-20] MEDS ORDERED: FAMOTIDINE 20 MG/2 ML VIAL IV STA (06:25)
--- NOTE | 2022-11-20 07:26 | XR ---
EXAMINATION TYPE: XR chest 2V DATE OF EXAM: 11/20/2022 5:27 AM COMPARISON: Chest radiographs from 04/07/2018 TECHNIQUE: XR chest 2V Frontal and lateral views of the chest. CLINICAL INDICATION:Male, 77 years old with history of Chest Pain; FINDINGS: Lungs/Pleura: There is no evidence of pleural effusion, focal consolidation, or pneumothorax. Pulmonary vascularity: Unremarkable. Heart/mediastinum: Cardiomediastinal silhouette is unremarkable. Musculoskeletal: No acute osseous pathology. IMPRESSION: No acute cardiopulmonary disease/process.
[2022-11-20] MEDS: FINASTERIDE 5 MG TAB PO SCH (08:57)
[2022-11-20] MEDS: METOPROLOL SUCCINATE (ER) 25 MG TAB.ER.24H PO SCH (08:57)
[2022-11-20] MEDS: hydroCHLOROthiazide 12.5 MG CAP PO SCH (08:57)
[2022-11-20] MEDS: amLODIPine 5 MG TAB PO SCH (08:58)
[2022-11-20] MEDS: lisinopriL 20 MG TAB PO SCH (08:58)
--- NOTE | 2022-11-20 11:18 | P.CRDCN ---
History of Present Illness History of present illness: HISTORY OF PRESENT ILLNESS: This is a 77-year-old male with a past medical history significant for hypertension and hyperlipidemia. Patient follows in the office with Dr. Dickinson. We have been asked to see the patient in consultation for chest pain. Patient examined at the bedside in the emergency room. Patient states he began having pain last Sunday after eating lunch. He states on he felt fine but then on Sunday and Sunday the pain came back and persisted. He states the pain is mostly in the epigastric region. He denies increased pain with deep inspiration or chest wall palpation. He states the pain is nonexertional. His encouraged him to come to the emergency room for further evaluation. The patient denies any chest pain at the time of examination. The patient states that he received Pepcid in the emergency room which relieved his pain. * EKG reveals sinus mechanism with no signs of acute ischemia * Chest xray negative for acute process * Laboratory data: WBC 8.9. Hemoglobin 14.3. Platelet count 255. Sodium 140. Potassium 3.6. BUN 19. Creatinine 1.06. Magnesium 2.1. Troponin negative 1 * Current home cardiac medications include Norvasc 5 mg daily, Lipitor 10 mg at night, hydrochlorothiazide 12.5 mg daily, lisinopril 20 mg daily, metoprolol succinate 25 mg daily * Most recent echocardiogram obtained in April 2018 revealed ejection fraction 55-60%, mild MR, mild TR * Patient underwent Lexiscan stress test in December 2021 in the office which was negative for stress-induced ischemia REVIEW OF SYSTEMS: At the time of my exam: CONSTITUTIONAL: Denies fever or chills. HEENT: Denies blurred vision, vision changes, or eye pain. Denies hemoptysis CARDIOVASCULAR: Denies chest pain. Denies orthopnea. Denies PND. Denies palpitations RESPIRATORY: Denies shortness of breath. GASTROINTESTINAL: Denies abdominal pain. Denies nausea or vomiting. HEMATOLOGIC: Denies bleeding disorders. GENITOURINARY: Denies any blood in urine. SKIN: Denies pruitis. Denies rash. PHYSICAL EXAM: VITAL SIGNS: Reviewed. GENERAL: Well-developed in no acute distress. HEENT: Head is normocephalic. Pupils are equal, round. Sclerae anicteric. Mucous membranes of the mouth are moist. Neck supple. No JVD or thyromegaly LUNGS: Respirations even and unlabored. Lungs essentially clear to auscultation bilaterally. HEART: Regular rate and rhythm. S1 and S2 heard. ABDOMEN: Soft. Nondistended. Nontender. EXTREMITIES: Normal range of motion. No clubbing or cyanosis. Peripheral p ulses intact. No lower extremity edema NEUROLOGIC: Awake and alert. Oriented x 3. ASSESSMENT: Chest pain, atypical Hypertension Hyperlipidemia PLAN: Obtain 2-D echo to assess cardiac structure and function Resume home cardiac medications Continue to monitor blood pressure Patient to undergo stress echocardiogram today Patient did receive his beta moreno this morning. If patient is unable to reach his target heart rate, patient will be set up for outpatient stress test in the office Further recommendations pending patient's course Nurse practitioner note has been reviewed by physician. Signing provider agrees with the documented findings, assessment, and plan of care. Patient was seen and examined in person with the notice nurse practitioner. I agree with the above assessment and plan. In summary patient is a 77-year-old patient who presented to ER with atypical chest pain. His EKG does not show any acute ST-T wave changes. He Margarita troponin is negative. His chest pain description sounds atypical and appears to be epigastric in origin. He had a exercise echo stress test last year which was negative for any inducible ischemia with stress. We will obtain a treadmill echo stress test. Patient did receive a beta moreno this morning which is his home medication. If patient is unable to achieve t arget heart rate, we will obtain an outpatient stress test and the patient will follow-up with Dr. Dickinson. Past Medical History Past Medical History: Hyperlipidemia, Hypertension History of Any Multi-Drug Resistant Organisms: None Reported Past Surgical History: Orthopedic Surgery Additional Past Surgical History / Comment(s): left wrist ORIF Past Anesthesia/Blood Transfusion Reactions: No Reported Reaction Past Psychological History: No Psychological Hx Reported Smoking Status: Never smoker Past Alcohol Use History: Occasional Past Drug Use History: None Reported - Past Family History Brother(s) Additional Family Medical History / Comment(s): aortic dissection Medications and Allergies Home Medications Medication Instructions Recorded Confirmed Type Finasteride [Proscar] 5 mg PO DAILY 04/08/18 11/20/22 History Metoprolol Succinate [Toprol XL] 25 mg PO DAILY 04/08/18 11/20/22 History Hydrochlorothiazide 12.5mg Tablet 12.5 mg PO DAILY 11/20/22 11/20/22 History Omeprazole [PriLOSEC] 20 mg PO HS 11/20/22 11/20/22 History Rosuvastatin Calcium 5 mg PO HS 11/20/22 11/20/22 History amLODIPine [Norvasc] 5 mg PO DAILY 11/20/22 11/20/22 History lisinopriL [Zestril] 20 mg PO DAILY 11/20/22 11/20/22 History Allergies Allergy/AdvReac Type Severity Reaction Status Date / Time Tetanus Vaccines and Toxoid Allergy Unknown Verified 11/20/22 06:53 Physical Exam Vitals: Vital Signs Temp Pulse Resp BP Pulse Ox 11/20/22 07:33 52 L 16 152/85 98 11/20/22 06:17 56 L 16 134/84 100 11/20/22 04:53 56 L 16 148/88 99 11/20/22 04:51 97.5 F L 61 18 167/92 98 Intake and Output 11/19/22 11/20/22 11/20/22 22:59 06:59 14:59 Other: Weight 90.718 kg Results 11/20/22 05:10 11/20/22 05:10 Cardiac Enzymes 11/20/22 11/20/22 Range/Units 05:10 05:10 AST 24 (17-59) U/L Troponin I <0.012 (0.000-0.034) ng/mL Coagulation 11/20/22 Range/Units 05:10 PT 10.9 (9.0-12.0) sec APTT 23.6 (22.0-30.0) sec CBC 11/20/22 Range/Units 05:10 WBC 8.9 (3.8-10.6) k/uL RBC 4.27 L (4.30-5.90) m/uL Hgb 14.3 (13.0-17.5) gm/dL Hct 41.1 (39.0-53.0) % Plt Count 255 (150-450) k/uL Comprehensive Metabolic Panel 11/20/22 Range/Units 05:10 Sodium 140 (137-145) mmol/L Potassium 3.6 (3.5-5.1) mmol/L Chloride 105 (98-107) mmol/L Carbon Dioxide 24 (22-30) mmol/L BUN 19 (9-20) mg/dL Creatinine 1.06 (0.66-1.25) mg/dL Glucose 112 H (74-99) mg/dL Calcium 9.6 (8.4-10.2) mg/dL AST 24 (17-59) U/L ALT 20 (4-49) U/L Alkaline Phosphatase 58 (38-126) U/L Total Protein 7.6 (6.3-8.2) g/dL Albumin 4.5 (3.5-5.0) g/dL Current Medications Generic Name Dose Route Start Last Admin Trade Name Freq PRN Reason Stop Dose Admin Amlodipine Besylate 5 mg 11/20/22 09:00 11/20/22 08:58 Amlodipine 5 Mg Tab PO 5 mg DAILY ROSARIO Administration Atorvastatin Calcium 10 mg 11/20/22 21:00 Atorvastatin 10 Mg Tab PO HS ROSARIO Finasteride 5 mg 11/20/22 09:00 11/20/22 08:57 Finasteride 5 Mg Tab PO 5 mg DAILY ROSARIO Administration Hydrochlorothiazide 12.5 mg 11/20/22 09:00 11/20/22 08:57 Hydrochlorothiazide 12.5 Mg Cap PO 12.5 mg DAILY ROSARIO Administration Lisinopril 20 mg 11/20/22 09:00 11/20/22 08:58 Lisinopril 20 Mg Tab PO 20 mg DAILY ROSARIO Administration Metoprolol Succinate 25 mg 11/20/22 09:00 11/20/22 08:57 Metoprolol Succinate (Er) 25 Mg Tab.Er.24h PO 25 mg DAILY ROSARIO Administration Naloxone HCl 0.2 mg 11/20/22 06:22 Naloxone 0.4 Mg/Ml 1 Ml Vial IV Q2M PRN Opioid Reversal Pantoprazole Sodium 40 mg 11/20/22 21:00 Pantoprazole 40 Mg Tablet PO HS ROSARIO Intake and Output 11/19/22 11/20/22 11/20/22 22:59 06:59 14:59 Other: Weight 90.718 kg 11/20/22 05:10 11/20/22 05:10
[2022-11-20] MEDS: APIXABAN 5 MG TAB PO SCH ×2 (13:30→20:50)
[2022-11-20] MEDS ORDERED: DILTIAZEM DRIP BOLUS FROM BAG 1 MG SOLN IV ONE (15:45)
[2022-11-20] MEDS: DILTIAZEM 125 MG in SODIUM CHLORIDE 0.9% 100 ML IV SCH (16:10)
--- NOTE | 2022-11-20 17:12 | CA ---
Stress Echo Report Arnold Fonseca Age: 77 Gender: M : 1945 Exam Date: 11/20/2022 11:41 Exam Location: [facility] Ht (in): 72 Wt (lb): 200 Ordering Physician: Meagan Shine Referring Physician: [id number] [employer] Building Design Specialist: Corazon Mccain RDCS Technologist Procedure CPT: Indication: CP ICD-9 Codes: Rhythm: Patient History: CHEST PAIN, HTN Cardiac Medications: Medications in past 24 hours: Contrast: Stress Results Protocol: Codey Total dose(mL): Exercise Duration (min:sec): 6:[address] Depression (mm): Angina Score: Cooper Score: METS: 8.3 Resting HR: 79 Resting BP: 153 / 84 Peak HR: 153 Peak BP: 179 / 92 Max Predicted HR: 142 108 % Max Predicted HR Target HR: 121 Double Product: [id number] Stress Summary: BP Response: Reason for Termination: TARGET HR/MAX EXERTION Cardiac Symptoms: ECG Analysis Resting ECG: Normal sinus rhythm, heart rate 55 bpm Stress ECG: No abnormal ST/T wave changes with exercise Arrhythmia: Occasional PVCs Echo Analysis Resting Echo: Normal global and regional wall motion at rest Peak Echo Analysis: Appropriate augmentation off all echocardiographic segments with stress Normal global and regional wall motion with stress No echocardiographic evidence of myocardial ischemia with treadmill-induced stress. MEASUREMENTS (Male/Female) Normal Values CONCLUSIONS Treadmill echo. Fair exercise tolerance, achieving [8.3] METS and [108]% of max predicted heart rate. Normal hemodynamic response to exercise. Nonischemic ECG response to exercise Normal resting echocardiogram. Nonischemic echocardiographic response to exercise Dr Sajan Avalos (Electronically Signed) Final Date: 20 November 2022 17:11
--- NOTE | 2022-11-20 19:07 | P.HPIM ---
History of Present Illness H&P Date: 11/20/22 Chief Complaint: Chest pain HISTORY OF PRESENT ILLNESS: This is a 77-year-old male with a previous medical history significant for hypertension and hypertensive cardio vascular disease, hyperlipidemia, GERD with esophagitis, history of enlarged prostate, patient presented to the emergency department at [facility] today because of increased mid epigastric abdominal pain radiating to the back associated with minimal shortness breath, patient stated that he was not sure about was going on, so he ended up coming to the ER for evaluation, his cardiac enzymes are negative, his 12-lead EKG did not show evidence of acute abnormalities, but because of the presentation he was admitted to the hospital for evaluation with cardiology consultation, patient underwent myocardial perfusion imaging about a year ago that was negative for stress-induced ischemia REVIEW OF SYSTEMS: Constitutional: No documented fever, no chills, no night sweats. No weight usama nge. No weakness, fatigue or lethargy. No daytime sleepiness. HEENT: No headache. No blurred vision or double vision, no loss of vision. No loss of Hearing, no ringing in the ears, no dizziness. No nasal drainage or congestion. No epistaxis. No sore throat. Lungs: No shortness of breath, no cough, no sputum production. No wheezing. Reports dyspnea with activity. Cardiovascular: positive for chest pain, no lower extremity edema. No palpitations. No paroxysmal nocturnal dyspnea. No orthopnea. No lightheadedness or dizziness. No syncopal episodes. Abdominal: Reports abdominal pain. No nausea, vomiting. No diarrhea. No constipation. No bloody or tarry stools reports loss of appetite. Genitourinary: No dysuria, increased frequency, urgency. No urinary retention. Musculoskeletal: No myalgias. No muscle weakness, no gait dysfunction, no frequent falls. No back pain. No neck pain. Integumentary: No wounds, no lesions. No rash or pruritus. No unusual bruising. No change in hair or nails. Neurologic: No aphasia. No facial droop. No change in mentation. No head injury. No headache. No paralysis. No paresthesia. Psychiatric: No depression. No anxiety. No mood swings. Endocrine: No abnormal blood sugars. No weight change. PAST MEDICAL HISTORY: Hypertension and hypertensive cardiovascular disease. Hyperlipidemia. GERD with esophagitis. Enlarged prostate PAST SURGICAL HISTORY: cataract surgery 2 colonoscopy SOCIAL HISTORY: patient is a lifelong nonsmoker, he denies any alcohol ingestion, no drug use or abuse. FAMILY HISTORY: father at the age of 81 from congestive heart failure, mother at age of 81 from lung cancer, patient has 3 brothers alive and well. PHYSICAL EXAMINATION: General: 77-year-old male laying down in bed in no apparent distress HEENT: Head is atraumatic, normocephalic, pupils were equal round reactive to light and recommendation, extraocular muscle movement were intact, sclera nonicteric, conjunctivae were pale, mucous membranes of the mouth are somewhat dry. Neck: Supple, no JVP, normal carotid upstroke bilaterally, no lymphadenopathy. Chest: Decreased breath sounds at the bases, few rhonchi, no expiratory wheezes, no chest wall tenderness, no intercostal retractions. Heart: First heart sound is normal, second heart sounds normal there is systolic ejection murmur 2/6 located in the left sternal border. Abdomen: Soft, nontender, nondistended, positive bowel sounds. Extremities: There is no edema no calf tenderness DP +2 bilaterally. Neurologic examination: Patient is awake alert and oriented X 3 , cranial nerves II-12 appear grossly intact, muscle power were 5 out of 5 in upper extremities and 5 out of 5 in bilateral lower extremities, deep tendon reflexes normal bilaterally. ASSESSMENT AND PLAN: 1. Chest pain likely due to peptic ulcer disease. Patient did have a cardiac workup about a year ago that was negative for stress-induced ischemia, we will obtain echo care gram for eval you should've LV function, we'll continue to monitor the patient very closely . 2. Hypertension and hypertensive cardio vascular disease. Continue patient on lisinopril 20 mg every day, metoprolol ER 25 mg once every day, Hytrin for thiazide 12.5 minute gram once every day, atorvastatin 20 mg orally once every day, monitor the patient to push every closely. 3. Hyperlipidemia. Continue patient on atorvastatin 20 mg orally once every day, monitor lipid panel, keep LDL 55-70. 4. GERD with esophagitis. Continue Protonix 40 mg once every day. 5. Enlarged prostate. Continue finasteride 5 mg orally once every day. 6. Observation. 7. Full code. Past Medical History Past Medical History: Hyperlipidemia, Hypertension History of Any Multi-Drug Resistant Organisms: None Reported Past Surgical History: Orthopedic Surgery Additional Past Surgical History / Comment(s): left wrist ORIF Past Anesthesia/Blood Transfusion Reactions: No Reported Reaction Past Psychological History: No Psychological Hx Reported Smoking Status: Never smoker Past Alcohol Use History: Occasional Past Drug Use History: None Reported - Past Family History Brother(s) Additional Family Medical History / Comment(s): aortic dissection Medications and Allergies Home Medications Medication Instructions Recorded Confirmed Type Finasteride [Proscar] 5 mg PO DAILY 04/08/18 11/20/22 History Metoprolol Succinate [Toprol XL] 25 mg PO DAILY 04/08/18 11/20/22 History Hydrochlorothiazide 12.5mg Tablet 12.5 mg PO DAILY 11/20/22 11/20/22 History Omeprazole [PriLOSEC] 20 mg PO HS 11/20/22 11/20/22 History Rosuvastatin Calcium 5 mg PO HS 11/20/22 11/20/22 History amLODIPine [Norvasc] 5 mg PO DAILY 11/20/22 11/20/22 History lisinopriL [Zestril] 20 mg PO DAILY 11/20/22 11/20/22 History Allergies Allergy/AdvReac Type Severity Reaction Status Date / Time Tetanus Vaccines and Toxoid Allergy Unknown Verified 11/20/22 06:53 Physical Exam Vitals: Vital Signs Temp Pulse Resp BP Pulse Ox 11/20/22 07:33 52 L 16 152/85 98 11/20/22 06:17 56 L 16 134/84 100 11/20/22 04:53 56 L 16 148/88 99 11/20/22 04:51 97.5 F L 61 18 167/92 98 Intake and Output 11/19/22 11/20/22 11/20/22 22:59 06:59 14:59 Other: Weight 90.718 kg Results CBC & Chem 7: 11/20/22 05:10 11/20/22 05:10 Labs: Abnormal Lab Results - Last 24 Hours (Table) 11/20/22 11/20/22 Range/Units 05:10 05:10 RBC 4.27 L (4.30-5.90) m/uL Glucose 112 H (74-99) mg/dL
[2022-11-20] MEDS ORDERED: PANTOPRAZOLE 40 MG TABLET PO SCH (21:00)
[2022-11-20] MEDS ORDERED: ATORVASTATIN 10 MG TAB PO SCH (21:00)
[2022-11-21] MEDS: DILTIAZEM 125 MG in SODIUM CHLORIDE 0.9% 100 ML IV SCH (05:02)
[2022-11-21 07:29] LABS: Basophils % (A) 0 %; Eosinophils # (A) 0.2 k/uL (0-0.7); Eosinophils % (A) 3 %; HCT 39.5 % (39.0-53.0); HGB 13.1 gm/dL (13.0-17.5); Lymphocytes # (A) 2.1 k/uL (1.0-4.8); Lymphocytes % (A) 26 %; MCH 31.4 pg (25.0-35.0); MCHC 33.2 g/dL (31.0-37.0); MCV 94.8 fL (80.0-100.0); Mean Platelet Volume 8.3; Monocytes # (A) 0.5 k/uL (0-1.0); Monocytes % (A) 7 %; Neutrophils # (A) 4.8 k/uL (1.3-7.7); Neutrophils % (A) 62 %; Platelet Count 255 k/uL (150-450); RBC 4.17 m/uL (4.30-5.90); RDW 12.4 % (11.5-15.5); WBC 7.7 k/uL (3.8-10.6)
[2022-11-21 07:47] LABS: African American GFR (CKD) 80 (>60 ml/min/1.73 sqM); Anion Gap 9 mmol/L; Blood Urea Nitrogen 23 mg/dL (9-20); Calcium 9.4 mg/dL (8.4-10.2); Carbon Dioxide 21 mmol/L (22-30); Chloride 106 mmol/L (98-107); Glucose 98 mg/dL (74-99); Non-African American GFR(CKD) 69 (>60 ml/min/1.73 sqM); Potassium 3.8 mmol/L (3.5-5.1); Sodium 136 mmol/L (137-145)
[2022-11-21 09:19] VITALS: BP 109/71; PULSE 63; RESP 18; TEMP 97.7
[2022-11-21] MEDS: METOPROLOL SUCCINATE (ER) 25 MG TAB.ER.24H PO SCH (09:21)
[2022-11-21] MEDS: APIXABAN 5 MG TAB PO SCH (09:21)
[2022-11-21] MEDS: amLODIPine 5 MG TAB PO SCH (09:21)
[2022-11-21] MEDS: FINASTERIDE 5 MG TAB PO SCH (09:21)
[2022-11-21] MEDS: lisinopriL 20 MG TAB PO SCH (09:21)
[2022-11-21] MEDS: hydroCHLOROthiazide 12.5 MG CAP PO SCH (11:51)
--- NOTE | 2022-11-21 15:48 | P.PN ---
Subjective Progress Note Date: 11/21/22 HISTORY OF PRESENT ILLNESS: This is a 77-year-old male with a past medical history significant for hype rtension and hyperlipidemia. Patient follows in the office with Dr. Dickinson. We have been asked to see the patient in consultation for chest pain. Patient examined at the bedside in the emergency room. Patient states he began having pain last Sunday after eating lunch. He states on he felt fine but then on Sunday and Sunday the pain came back and persisted. He states the pain is mostly in the epigastric region. He denies increased pain with deep inspiration or chest wall palpation. He states the pain is nonexertional. His encouraged him to come to the emergency room for further evaluation. The patient denies any chest pain at the time of examination. The patient states that he received Pepcid in the emergency room which relieved his pain. * EKG reveals sinus mechanism with no signs of acute ischemia * Chest xray negative for acute process * Laboratory data: WBC 8.9. Hemoglobin 14.3. Platelet count 255. Sodium 140. Potassium 3.6. BUN 19. Creatinine 1.06. Magnesium 2.1. Troponin negative 1 * Current home cardiac medications include Norvasc 5 mg daily, Lipitor 10 mg at night, hydrochlorothiazide 12.5 mg daily, lisinopril 20 mg daily, metoprolol succinate 25 mg daily * Most recent echocardiogram obtained in April 2018 revealed ejection fraction 55-60%, mild MR, mild TR * Patient underwent Lexiscan stress test in December 2021 in the office which was negative for stress-induced ischemia 11/21 Yesterday, patient underwent stress echocardiogram that revealed normal study. Following the stress test, patient went immediately into atrial fibrillation with RVR. He has no previous history of A. fib. Patient was then transferred to the cardiac stepdown unit, started on eliquis and Cardizem drip. Patient is seen today in follow-up and is in a sinus rhythm. Patient denies having any cough fever or chills. No chest pain. No palpitations. Echocardiogram has been obtained the patient will not have to wait for results. PHYSICAL EXAM: VITAL SIGNS: Reviewed. GENERAL: Well-developed in no acute distress. HEENT: Head is normocephalic. Pupils are equal, round. Sclerae anicteric. Mucous membranes of the mouth are moist. Neck supple. No JVD or thyromegaly LUNGS: Respirations even and unlabored. Lungs essentially clear to auscultation bilaterally. HEART: Regular rate and rhythm. S1 and S2 heard. ABDOMEN: Soft. Nondistended. Nontender. EXTREMITIES: Normal range of motion. No clubbing or cyanosis. Peripheral pulses intact. No lower extremity edema NEUROLOGIC: Awake and alert. Oriented x 3. ASSESSMENT: Chest pain, atypical Hypertension Hyperlipidemia new onset A. fib with RVR, paroxysmal PLAN: continue patient's current cardiac medications Patient is cleared for discharge from cardiology may follow-up in the office with Dr. Dickinson in 1-2 weeks. Nurse practitioner note has been reviewed, I agree with the documented findings and plan of care. Patient was seen and examined. Objective - Vital Signs Vital signs: Vital Signs Temp 97.7 F 11/21/22 08:00 Pulse 63 11/21/22 08:00 Resp 18 11/21/22 08:00 BP 109/71 11/21/22 08:00 Pulse Ox 98 11/21/22 08:00 FiO2 Intake & Output 11/20/22 11/21/22 11/21/22 18:59 06:59 18:59 Intake Total 34.5 130 Balance 34.5 130 Weight 90.718 kg Intake: IV 10 Invasive Line 1 10 Intake, IV Titration 34.5 Amount Diltiazem 125 mg In 34.5 Sodium Chloride 0.9% 100 ml @ 10 MG/HR 10 mls/hr IV .[id number] ROSARIO Rx#: [id number] Oral 120 Other: Voiding Method Toilet # Voids 0 # Bowel Movements 0 - Labs CBC & Chem 7: 11/21/22 06:52 11/21/22 06:52 Labs: Abnormal Lab Results - Last 24 Hours (Table) 11/21/22 11/21/22 Range/Units 06:52 06:52 RBC 4.17 L (4.30-5.90) m/uL Sodium 136 L (137-145) mmol/L Carbon Dioxide 21 L (22-30) mmol/L BUN 23 H (9-20) mg/dL
--- NOTE | 2022-11-21 15:52 | P.DS ---
Providers Date of admission: 11/20/22 06:22 Expected date of discharge: 11/21/22 Attending physician: Braden Reardon Consults: 11/20/22 06:22 Consult Physician Urgent Consulting Provider: [facility] Consult Reason/Comments: acute chest pain Do you want consulting provider notified?: Yes Primary care physician: Braden Reardon Hospital Course: HISTORY OF PRESENT ILLNESS: This is a 77-year-old male with a previous medical history significant for hypertension and hypertensive cardio vascular disease, hyperlipidemia, GERD with esophagitis, history of enlarged prostate, patient presented to the emergency department at [facility] today because of increased mid epigastric abdominal pain radiating to the back associated with minimal shortness breath, patient stated that he was not sure about was going on, so he ended up coming to the ER for evaluation, his cardiac enzymes are negative, his 12-lead EKG did not show evidence of acute abnormalities, but because of the presentation he was admitted to the hospital for evaluation with cardiology consultation, patient underwent myocardial perfusion imaging about a year ago that was negative for stress-induced ischemia 11/21: Yesterday, patient underwent stress echocardiogram that revealed normal study. Following the stress test, patient went immediately into atrial fibrillation with RVR. He has no previous history of A. fib. Patient was then transferred to the cardiac stepdown unit, started on eliquis and Cardizem drip. Patient is seen today in follow-up and is in a sinus rhythm. Patient denies having any cough fever or chills. No chest pain. No palpitations. Echocardiogram has been obtained the patient will not have to wait for results. He has been cleared for discharge by cardiology. DISCHARGE DIAGNOSES: 1. Chest pain likely due to peptic ulcer disease. 2. Hypertension and hypertensive cardio vascular disease. 3. Hyperlipidemia. 4. GERD with esophagitis. 5. Enlarged prostate. 6. NEW ONSET OF ATRIAL FIBRILLATION, PAROXYSMAL dISCHARGE PLAN hOME Greater than 35 minutes was utilized and coordinating patient's discharge. Impression and plan of care have been directed as dictated by the signing physician. Smitha Fernandez nurse practitioner acting as scribe for signing physician. Patient Condition at Discharge: Good Plan - Discharge Summary Discharge Rx Participant: No New Discharge Prescriptions: New Pantoprazole [Protonix] 40 mg PO DAILY #30 tab Apixaban [Eliquis] 5 mg PO BID #60 tab Famotidine 40 mg PO HS #30 tab Continue Metoprolol Succinate [Toprol XL] 25 mg PO DAILY Finasteride [Proscar] 5 mg PO DAILY amLODIPine [Norvasc] 5 mg PO DAILY lisinopriL [Zestril] 20 mg PO DAILY Rosuvastatin Calcium 5 mg PO HS Hydrochlorothiazide 12.5mg Tablet 12.5 mg PO DAILY Discontinued Omeprazole [PriLOSEC] 20 mg PO HS Discharge Medication List Finasteride [Proscar] 5 mg PO DAILY 04/08/18 [History] Metoprolol Succinate [Toprol XL] 25 mg PO DAILY 04/08/18 [History] Hydrochlorothiazide 12.5mg Tablet 12.5 mg PO DAILY 11/20/22 [History] Rosuvastatin Calcium 5 mg PO HS 11/20/22 [History] amLODIPine [Norvasc] 5 mg PO DAILY 11/20/22 [History] lisinopriL [Zestril] 20 mg PO DAILY 11/20/22 [History] Apixaban [Eliquis] 5 mg PO BID #60 tab 11/21/22 [Rx] Famotidine 40 mg PO HS #30 tab 11/21/22 [Rx] Pantoprazole [Protonix] 40 mg PO DAILY #30 tab 11/21/22 [Rx] Follow up Appointment(s)/Referral(s): Monserrat Dickinson MD [STAFF PHYSICIAN] - 11/29/22 3:00 pm Braden Reardon MD [Primary Care Provider] - 11/28/22 10:45 am Patient Instructions/Handouts: Chest Pain (DC), Acute Coronary Syndrome (DC) Discharge Disposition: HOME SELF-CARE
--- NOTE | 2022-11-22 08:37 | CA ---
Transthoracic Echo Report Name: Arnold Fonseca Age: 77 Gender: M : 1945 Exam Date: 11/21/2022 07:53 Exam Location: [facility] Ht (in): 72 Wt (lb): 200 Ordering Physician: Braden Reardon MD Attending/Referring Phys: Security Compliance Specialist Bhavin Friend Procedure CPT: Indications: LVF Cardiac Hx: Technical Quality: Fair Contrast 1: Total Dose (mL): Contrast 2: Total Dose (mL): MEASUREMENTS (Male / Female) Normal Values 2D ECHO LV Diastolic Diameter PLAX 4.9 cm 4.2 - 5.9 / 3.9 - 5.3 cm LV Systolic Diameter PLAX 3.3 cm IVS Diastolic Thickness 0.9 cm 0.6 - 1.0 / 0.6 - 0.9 cm LVPW Diastolic Thickness 1.0 cm 0.6 - 1.0 / 0.6 - 0.9 cm LV Relative Wall Thickness 0.4 RV Internal Dim ED PLAX 4.0 cm LVOT Diameter 2.1 cm Aortic Root Diameter 3.2 cm LA Systolic Diameter LX 2.7 cm 3.0 - 4.0 / 2.7 - 3.8 cm LV Diastolic Volume MOD BP 58.7 cm??? 67 - 155 / 56 - 104 cm??? LV Systolic Volume MOD BP 22.3 cm??? 22 - 58 / 19 - 49 cm??? LV Ejection Fraction MOD BP 62.0 % >= 55 % LV Cardiac Index MOD BP 792.5 cm???/min???m??? LV Diastolic Volume MOD 4C 63.5 cm??? LV Systolic Volume MOD 4C 22.9 cm??? LV Ejection Fraction MOD 4C 63.9 % LV Cardiac Index MOD 4C 883.4 cm???/min???m??? LV Diastolic Length 4C 7.1 cm LV Systolic Length 4C 6.0 cm LV Diastolic Volume MOD 2C 52.3 cm??? LV Systolic Volume MOD 2C 20.6 cm??? LV Ejection Fraction MOD 2C 60.6 % LV Cardiac Index MOD 2C 690.4 cm???/min???m??? LV Diastolic Length 2C 6.7 cm LV Systolic Length 2C 5.6 cm LA Volume 42.6 cm??? 18 - 58 / 22 - 52 cm??? Ascending Aorta Diameter 3.5 cm DOPPLER AV Peak Velocity 100.3 cm/s AV Peak Gradient 4.0 mmHg LVOT Peak Velocity 99.1 cm/s LVOT Peak Gradient 3.9 mmHg AV Area Cont Eq pk 3.4 cm??? MV Peak Velocity 51.3 cm/s MV Peak Gradient 1.1 mmHg MV Mean Velocity 28.7 cm/s MV Mean Gradient 0.4 mmHg MV Velocity Time Integral 24.1 cm Mitral E Point Velocity 44.7 cm/s Mitral A Point Velocity 49.6 cm/s Mitral E to A Ratio 0.9 MV Deceleration Time 387.6 ms MV E' Velocity 6.7 cm/s Mitral E to MV E' Ratio 6.7 TR Peak Velocity 206.0 cm/s TR Peak Gradient 17.0 mmHg Right Ventricular Systolic Press 22.3 mmHg PV Peak Velocity 84.4 cm/s PV Peak Gradient 2.8 mmHg FINDINGS Left Ventricle Normal LV size and wall thickness. Left ventricular ejection fraction is estimated at 60-65 %. No obvious regional wall motion abnormality. Right Ventricle Normal right ventricular size. Right Atrium Normal right atrial size. Left Atrium Normal left atrial size. Mitral Valve Structurally normal mitral valve. Aortic Valve Trileaflet aortic valve. Mild aortic leaflet calcification . No aortic valve stenosis or regurgitation. Tricuspid Valve Structurally normal tricuspid valve. Mild TR. Pulmonic Valve Pulmonic valve not well visualized. Mild PI. Pericardium No Pericardial effusion Aorta Normal size aortic root and proximal ascending aorta. CONCLUSIONS Normal LV size and systolic function. Estimated LVEF 60% No obvious regional wall motion abnormality No significant valvular dysfunction No significant chamber size abnormality No prior echo to compare with Previewed by: Dr Sajan Avalos (Electronically Signed) Final Date: 21 November 2022 12:10
== END 2022-11-21 11:53 | disposition home or self-care (01) ==
LOC: EC 04:49 → 6NMEDSUR 06:22 → 3SCARD 18:06
PROVIDERS: ADMIT Internal Medicine; ATTEND Internal Medicine
DX: I20.9 Angina pectoris, unspecified (principal); R07.89 Other chest pain; I48.0 Paroxysmal atrial fibrillation; K21.00 Gastro-esophageal reflux disease with esophagitis, without bleeding; N40.0 Benign prostatic hyperplasia without lower urinary tract symptoms; I11.9 Hypertensive heart disease without heart failure; E78.5 Hyperlipidemia, unspecified; Z79.899 Other long term (current) drug therapy
CPT/HCPCS: 96366 ×3; 96365; 96375; 99285; 36415; 93005; 93306; 93351; 80053; 80048; 83690; 83735; 84484; 85025 ×2; 85610; 85730; 71046; G0378 ×3; S0138 ×2; C9113

== ENCOUNTER → 2023-04-12 | Outpatient (CLI) | payer MEDICARE, BC ==
--- NOTE | 2023-04-12 14:55 | XR ---
EXAMINATION TYPE: XR cervical spine w flex/ext DATE OF EXAM: 04/12/2023 TECHNIQUE: Frontal, lateral, oblique, swimmers, and open mouth view of the cervical spine are obtaine d. Additional flexion and extension views are submitted. HISTORY: M47.812 COMPARISON: None FINDINGS: The cervical spine is visualized in its entirety from C1 thru the top of T1 level, it is s atisfactory in alignment without evidence of acute fracture or dislocation. The pre-vertebral soft t issue appears within normal limits. Severe degenerative narrowing noted extending from C4 through C7 . Grade 1 anterolisthesis of C5 on C6 of 3 mm at neutral 3.3 mm at flexion and 2.4 mm at extension. R emaining alignment is within normal limits. The C1-C2 articulation is within normal limits on the ope n mouth view. The oblique images are within normal limits. IMPRESSION: As above
== END | disposition home or self-care (01) ==
LOC: RADXRMAIN 14:15
PROVIDERS: ATTEND Internal Medicine
DX: M47.812 Spondylosis without myelopathy or radiculopathy, cervical region (principal); M50.323 Other cervical disc degeneration at C6-C7 level
CPT/HCPCS: 72052